=== PATIENT | male | born 1980 | race Caucasian/White ===

== ENCOUNTER 2016-04-09 17:07 | Inpatient (IN) | payer OTHER ==
[~2016-04-09] VITALS: Ht 185.4 cm; Wt 83.2 kg
[~2016-04-09 17:07] MED LIST: BENZTROPINE MESY1 MG PO; DIVALPROEX SOD500 MG PO; HALDOL DECON50 MG/ML IM; HALDOL10 MG PO; INVEGA SUS234 MG/1.5 IM; LAMOTRIGINE50 MG PO; RANITIDINE HCL150 MG PO; TYLENOL EXTRA500 MG PO; ZOLPIDEM TARTRA10 MG PO
[2016-04-09 18:11] LABS: GLUCOSE 118 mg/dL (70-99)
[2016-04-09 18:14] LABS: ALKALINE PHOSPHATASE 52 IU/L (3-129); GFR ESTIMATE (CALCULATED) > 59 mL/min/
[2016-04-09 18:15] LABS: UREA NITROGEN (BUN) 8 mg/dL (9-23)
[2016-04-09 18:28] LABS: ANION GAP ND MEQ/L (2-14); CHLORIDE ND mEq/L (99-109); POTASSIUM ND mEq/L (3.7-5.4); SODIUM ND mEq/L (136-147)
[2016-04-09 19:12] LABS: MCH 30.4 PG (29.0-34.0); MEAN PLAT.VOLUME 10.3 uM^3 (9.0-12.4); PLATELET COUNT 196 K/uL (156-360); RBC DIS.WIDTH-CV 12.4 % (11.8-14.6); RBC DIS.WIDTH-SD 33.3 % (39-53); RED BLOOD COUNT 5.06 M/uL (4.00-5.50); WHITE BLOOD COUNT 12.6 K/uL (4.1-10.2)
[2016-04-09 19:13] LABS: CHLORIDE < 64 mEq/L (99-109); POTASSIUM 3.1 mEq/L (3.7-5.4)
[2016-04-09 19:13] LABS: HEMATOCRIT ND % (38.0-50.0); MCHC 32.84 G/DL (30.0-36.0); MCV 92.68 FL (86-99)
[2016-04-09 19:19] LABS: SODIUM 102 mEq/L (136-147)
[2016-04-09 20:22] LABS: CHLORIDE 64 MEQ/L (99-109)
[2016-04-09 20:23] LABS: GLUCOSE 101 mg/dL (70-99)
[2016-04-09 20:24] LABS: SODIUM 103 MEQ/L (136-147)
[2016-04-09 20:25] LABS: ANION GAP 10 MEQ/L (2-14)
[2016-04-09 20:27] LABS: GFR ESTIMATE (CALCULATED) > 59 mL/min/
[2016-04-09 20:28] LABS: UREA NITROGEN (BUN) 7 mg/dL (9-23)
[2016-04-09 20:47] LABS: ADD MIUA? YES; BILIRUBIN NEGATIVE; BLOOD NEGATIVE; COLOR YELLOW ((YELLOW)); GLUCOSE (STRIP) NEGATIVE; KETONES 20; LEUKOCYTES NEGATIVE; NITRITE NEGATIVE; PROTEIN (STRIP) NEGATIVE; SPECIFIC GRAVITY 1.012 (1.000-1.030)
[2016-04-09 20:50] LABS: BACTERIA RARE /HPF; CASTS NONE SEEN /LPF; CRYSTALS PRESENT; EPITHELIAL CELLS NONE SEEN /HPF; MUCUS NONE SEEN /LPF; RED BLOOD CELLS 0-5 /HPF (0-5); UCUL ADDED? NO; WHITE BLOOD CELLS 0-5 /HPF (0-5)
[2016-04-09 20:51] LABS: AMORPHOUS URATES CRYSTALS FEW
[2016-04-09] MEDS ORDERED: INVEGA SUS234 MG/1.5 IM (21:32)
[2016-04-09] MEDS ORDERED: HALDOL DECON50 MG/ML IM (21:33)
[2016-04-09] MEDS ORDERED: ZOLPIDEM TARTRAT5 MG PO (21:33)
[2016-04-09] MEDS ORDERED: TYLENOL EXTRA500 MG PO (21:33)
[2016-04-09] MEDS ORDERED: THROAT SPRAY177 M1 MM (21:34)
[2016-04-09] MEDS ORDERED: GLYCERIN (21:35)
[2016-04-09 22:25] VITALS: BP 134/72
[2016-04-09 22:30] VITALS: BP 149/73
[2016-04-09 22:45] VITALS: BP 119/71
[2016-04-09 23:00] VITALS: BP 105/67
[2016-04-09 23:30] VITALS: BP 131/73
[2016-04-09 23:45] LABS: METH RESISTANT S AUREUS PCR NEGATIVE (NEGATIVE)
[2016-04-09 23:47] LABS: PROBE CHECK PASS; SPECIMEN PROCESSING CONTROL PASS
[2016-04-10] VITALS (24 sets, daily range): BP systolic 92–138; BP diastolic 40–77
[2016-04-10 00:08] LABS: CHLORIDE 66 mEq/L (99-109); POTASSIUM 2.7 mEq/L (3.7-5.4)
[2016-04-10 00:10] LABS: GLUCOSE 98 mg/dL (70-99)
[2016-04-10 00:12] LABS: ANION GAP 11 MEQ/L (2-14); TOTAL BILIRUBIN 1.2 mg/dL (0.0-1.0)
[2016-04-10 00:14] LABS: ALKALINE PHOSPHATASE 55 IU/L (3-129); GFR ESTIMATE (CALCULATED) > 59 mL/min/
[2016-04-10 00:15] LABS: UREA NITROGEN (BUN) 6 mg/dL (9-23)
[2016-04-10 00:16] LABS: DIRECT BILIRUBIN 0.5 mg/dL (0.0-0.3)
[2016-04-10 00:27] LABS: SODIUM 106 mEq/L (136-147)
[2016-04-10 05:14] LABS: GLUCOSE 98 mg/dL (70-99)
[2016-04-10 05:16] LABS: ANION GAP 9 MEQ/L (2-14)
[2016-04-10 05:18] LABS: GFR ESTIMATE (CALCULATED) > 59 mL/min/
[2016-04-10 05:19] LABS: UREA NITROGEN (BUN) 6 mg/dL (9-23)
[2016-04-10 05:20] LABS: CHLORIDE 73 mEq/L (99-109); POTASSIUM 3.3 mEq/L (3.7-5.4); SODIUM 109 mEq/L (136-147)
[2016-04-10 09:53] LABS: ANION GAP 7 MEQ/L (2-14); GFR ESTIMATE (CALCULATED) > 59 mL/min/; GLUCOSE 99 mg/dL (70-99); POTASSIUM 2.9 MEQ/L (3.7-5.4); SAMPLE HEMOLYSIS CHECK 0; SAMPLE ICTERIC CHECK 0; SAMPLE LIPEMIA CHECK 0; UREA NITROGEN (BUN) 5 mg/dL (9-23)
[2016-04-10 09:55] LABS: CHLORIDE 76 MEQ/L (99-109); SODIUM 113 MEQ/L (136-147)
[2016-04-10 13:12] LABS: ANION GAP 7 MEQ/L (2-14); CHLORIDE 77 MEQ/L (99-109); GFR ESTIMATE (CALCULATED) > 59 mL/min/; GLUCOSE 89 mg/dL (70-99); POTASSIUM 3.1 MEQ/L (3.7-5.4); SAMPLE HEMOLYSIS CHECK 0; SAMPLE ICTERIC CHECK 0; SAMPLE LIPEMIA CHECK 0; UREA NITROGEN (BUN) 6 mg/dL (9-23)
[2016-04-10 13:14] LABS: SODIUM 114 MEQ/L (136-147)
[2016-04-10 14:52] LABS: ANION GAP 10 MEQ/L (2-14); CHLORIDE 78 MEQ/L (99-109); GFR ESTIMATE (CALCULATED) > 59 mL/min/; GLUCOSE 99 mg/dL (70-99); POTASSIUM 3.6 MEQ/L (3.7-5.4); SAMPLE HEMOLYSIS CHECK 0; SAMPLE ICTERIC CHECK 0; SAMPLE LIPEMIA CHECK 0; UREA NITROGEN (BUN) 5 mg/dL (9-23)
[2016-04-10 14:54] LABS: SODIUM 120 MEQ/L (136-147)
[2016-04-10 19:31] LABS: ANION GAP 11 MEQ/L (2-14); CHLORIDE 81 MEQ/L (99-109); SAMPLE HEMOLYSIS CHECK 0; SAMPLE ICTERIC CHECK 0; SAMPLE LIPEMIA CHECK 0; SODIUM 121 MEQ/L (136-147)
[2016-04-10 19:37] LABS: GFR ESTIMATE (CALCULATED) > 59 mL/min/; GLUCOSE 99 mg/dL (70-99); UREA NITROGEN (BUN) 7 mg/dL (9-23)
[2016-04-10 22:39] LABS: ANION GAP 10 MEQ/L (2-14); CHLORIDE 82 MEQ/L (99-109); GFR ESTIMATE (CALCULATED) > 59 mL/min/; GLUCOSE 89 mg/dL (70-99); SAMPLE HEMOLYSIS CHECK 0; SAMPLE ICTERIC CHECK 0; SAMPLE LIPEMIA CHECK 0; SODIUM 120 MEQ/L (136-147); UREA NITROGEN (BUN) 7 mg/dL (9-23)
[2016-04-11] VITALS (24 sets, daily range): BP systolic 90–135; BP diastolic 50–90
[2016-04-11 00:45] LABS: POTASSIUM 3.2 mEq/L (3.7-5.4); SODIUM 121 mEq/L (136-147)
[2016-04-11 00:46] LABS: CHLORIDE 85 mEq/L (99-109); GLUCOSE 109 mg/dL (70-99)
[2016-04-11 00:48] LABS: ANION GAP 8 MEQ/L (2-14)
[2016-04-11 00:50] LABS: GFR ESTIMATE (CALCULATED) > 59 mL/min/
[2016-04-11 00:51] LABS: UREA NITROGEN (BUN) 7 mg/dL (9-23)
[2016-04-11 02:35] LABS: CHLORIDE 85 mEq/L (99-109); POTASSIUM 3.2 mEq/L (3.7-5.4); SODIUM 121 mEq/L (136-147)
[2016-04-11 02:36] LABS: GLUCOSE 120 mg/dL (70-99)
[2016-04-11 02:38] LABS: ANION GAP 8 MEQ/L (2-14)
[2016-04-11 02:40] LABS: GFR ESTIMATE (CALCULATED) > 59 mL/min/
[2016-04-11 02:41] LABS: UREA NITROGEN (BUN) 7 mg/dL (9-23)
[2016-04-11 04:57] LABS: CHLORIDE 85 mEq/L (99-109); POTASSIUM 3.1 mEq/L (3.7-5.4); SODIUM 121 mEq/L (136-147)
[2016-04-11 04:59] LABS: GLUCOSE 93 mg/dL (70-99)
[2016-04-11 05:00] LABS: ANION GAP 9 MEQ/L (2-14)
[2016-04-11 05:02] LABS: GFR ESTIMATE (CALCULATED) > 59 mL/min/
[2016-04-11 05:03] LABS: UREA NITROGEN (BUN) 7 mg/dL (9-23)
[2016-04-11 06:51] LABS: EOSINOPHIL (%) 0.8 % (0-5); EOSINOPHIL COUNT 0.1 K/uL (0-0.3); HEMATOCRIT 38.8 % (38.0-50.0); IMMATURE GRANULOCYTE (%) 0.2 % (0.0-0.7); LYMPHOCYTE COUNT 1.6 K/uL (1.0-2.8); MCH 30.4 PG (29.0-34.0); MCHC 32.7 G/DL (30.0-36.0); MCV 92.8 FL (86-99); MONOCYTE (%) 10.3 % (3-12); MONOCYTE COUNT 0.6 K/uL (0-0.8); NEUTROPHIL (%) 62.3 % (45-76); NEUTROPHIL COUNT 3.9 K/uL (1.8-6.4); PLATELET COUNT 193 K/uL (156-360); RBC DIS.WIDTH-CV 12.6 % (11.8-14.6); RBC DIS.WIDTH-SD 36.2 % (39-53)
[2016-04-11 06:56] LABS: WHITE BLOOD COUNT 6.2 K/uL (4.1-10.2)
[2016-04-11 07:44] LABS: ANION GAP 8 MEQ/L (2-14); CHLORIDE 82 MEQ/L (99-109); GFR ESTIMATE (CALCULATED) > 59 mL/min/; GLUCOSE 110 mg/dL (70-99); POTASSIUM 3.1 MEQ/L (3.7-5.4); SAMPLE HEMOLYSIS CHECK 0; SAMPLE ICTERIC CHECK 0; SAMPLE LIPEMIA CHECK 0; UREA NITROGEN (BUN) 7 mg/dL (9-23)
[2016-04-11 07:45] LABS: SODIUM 118 MEQ/L (136-147)
[2016-04-11 09:01] LABS: ANION GAP 6 MEQ/L (2-14); CHLORIDE 82 MEQ/L (99-109); GFR ESTIMATE (CALCULATED) > 59 mL/min/; GLUCOSE 126 mg/dL (70-99); POTASSIUM 3.1 MEQ/L (3.7-5.4); SAMPLE HEMOLYSIS CHECK 0; SAMPLE ICTERIC CHECK 0; SAMPLE LIPEMIA CHECK 0; SODIUM 117 MEQ/L (136-147); UREA NITROGEN (BUN) 7 mg/dL (9-23)
[2016-04-11 11:12] LABS: ANION GAP 8 MEQ/L (2-14); CHLORIDE 82 MEQ/L (99-109); GFR ESTIMATE (CALCULATED) > 59 mL/min/; POTASSIUM 3.6 MEQ/L (3.7-5.4); SAMPLE HEMOLYSIS CHECK 2; SAMPLE ICTERIC CHECK 0; SAMPLE LIPEMIA CHECK 0; UREA NITROGEN (BUN) 7 mg/dL (9-23)
[2016-04-11 11:22] LABS: GLUCOSE 77 mg/dL (70-99); SODIUM 117 MEQ/L (136-147)
[2016-04-11 13:04] LABS: ANION GAP 9 MEQ/L (2-14); CHLORIDE 82 MEQ/L (99-109); GFR ESTIMATE (CALCULATED) > 59 mL/min/; POTASSIUM 3.2 MEQ/L (3.7-5.4); SAMPLE HEMOLYSIS CHECK 0; SAMPLE ICTERIC CHECK 0; SAMPLE LIPEMIA CHECK 0; UREA NITROGEN (BUN) 6 mg/dL (9-23)
[2016-04-11 13:15] LABS: GLUCOSE 102 mg/dL (70-99); SODIUM 118 MEQ/L (136-147)
[2016-04-11 14:27] LABS: ANION GAP 6 MEQ/L (2-14); CHLORIDE 83 MEQ/L (99-109); GFR ESTIMATE (CALCULATED) > 59 mL/min/; GLUCOSE 117 mg/dL (70-99); POTASSIUM 2.9 MEQ/L (3.7-5.4); SAMPLE HEMOLYSIS CHECK 0; SAMPLE ICTERIC CHECK 0; SAMPLE LIPEMIA CHECK 0; UREA NITROGEN (BUN) 6 mg/dL (9-23)
[2016-04-11 14:28] LABS: SODIUM 117 MEQ/L (136-147)
[2016-04-11 16:48] LABS: ANION GAP 9 MEQ/L (2-14); CHLORIDE 83 MEQ/L (99-109); GFR ESTIMATE (CALCULATED) > 59 mL/min/; GLUCOSE 106 mg/dL (70-99); POTASSIUM 3.2 MEQ/L (3.7-5.4); SAMPLE HEMOLYSIS CHECK 0; SAMPLE ICTERIC CHECK 0; SAMPLE LIPEMIA CHECK 0; SODIUM 121 MEQ/L (136-147); UREA NITROGEN (BUN) 6 mg/dL (9-23)
[2016-04-11 18:03] LABS: ANION GAP 10 MEQ/L (2-14); CHLORIDE 86 MEQ/L (99-109); GFR ESTIMATE (CALCULATED) > 59 mL/min/; GLUCOSE 107 mg/dL (70-99); SAMPLE HEMOLYSIS CHECK 0; SAMPLE ICTERIC CHECK 0; SAMPLE LIPEMIA CHECK 0; SODIUM 121 MEQ/L (136-147); UREA NITROGEN (BUN) 5 mg/dL (9-23)
[2016-04-11 20:13] LABS: ANION GAP 9 MEQ/L (2-14); CHLORIDE 89 MEQ/L (99-109); GFR ESTIMATE (CALCULATED) > 59 mL/min/; GLUCOSE 97 mg/dL (70-99); SAMPLE HEMOLYSIS CHECK 0; SAMPLE ICTERIC CHECK 0; SAMPLE LIPEMIA CHECK 0; SODIUM 126 MEQ/L (136-147); UREA NITROGEN (BUN) 6 mg/dL (9-23)
[2016-04-11 22:19] LABS: ANION GAP 6 MEQ/L (2-14); CHLORIDE 92 MEQ/L (99-109); GFR ESTIMATE (CALCULATED) > 59 mL/min/; POTASSIUM 2.9 MEQ/L (3.7-5.4); SAMPLE HEMOLYSIS CHECK 0; SAMPLE ICTERIC CHECK 0; SAMPLE LIPEMIA CHECK 0; SODIUM 126 MEQ/L (136-147); UREA NITROGEN (BUN) 6 mg/dL (9-23)
[2016-04-11 22:28] LABS: GLUCOSE 242 mg/dL (70-99)
[2016-04-12] VITALS (14 sets, daily range): BP systolic 98–142; BP diastolic 34–88
[2016-04-12 01:27] LABS: SODIUM 132 mEq/L (136-147)
[2016-04-12 01:30] LABS: ANION GAP 7 MEQ/L (2-14)
[2016-04-12 01:32] LABS: GFR ESTIMATE (CALCULATED) > 59 mL/min/
[2016-04-12 01:33] LABS: UREA NITROGEN (BUN) 5 mg/dL (9-23)
[2016-04-12 01:39] LABS: CHLORIDE 97 mEq/L (99-109); GLUCOSE 116 mg/dL (70-99); POTASSIUM 3.7 mEq/L (3.7-5.4)
[2016-04-12 03:27] LABS: CHLORIDE 97 mEq/L (99-109); POTASSIUM 3.6 mEq/L (3.7-5.4); SODIUM 132 mEq/L (136-147)
[2016-04-12 03:29] LABS: GLUCOSE 104 mg/dL (70-99)
[2016-04-12 03:31] LABS: ANION GAP 7 MEQ/L (2-14)
[2016-04-12 03:33] LABS: GFR ESTIMATE (CALCULATED) > 59 mL/min/
[2016-04-12 03:34] LABS: UREA NITROGEN (BUN) 5 mg/dL (9-23)
[2016-04-12 07:05] LABS: ANION GAP 9 MEQ/L (2-14); CHLORIDE 98 MEQ/L (99-109); GFR ESTIMATE (CALCULATED) > 59 mL/min/; GLUCOSE 137 mg/dL (70-99); MAGNESIUM 2.2 mg/dl (1.3-2.7); SAMPLE HEMOLYSIS CHECK 0; SAMPLE ICTERIC CHECK 0; SAMPLE LIPEMIA CHECK 0; SODIUM 131 MEQ/L (136-147); UREA NITROGEN (BUN) 5 mg/dL (9-23)
[2016-04-12 09:55] LABS: ANION GAP 9 MEQ/L (2-14); CHLORIDE 96 MEQ/L (99-109); GFR ESTIMATE (CALCULATED) > 59 mL/min/; GLUCOSE 150 mg/dL (70-99); SAMPLE HEMOLYSIS CHECK 0; SAMPLE ICTERIC CHECK 0; SAMPLE LIPEMIA CHECK 0; SODIUM 131 MEQ/L (136-147); UREA NITROGEN (BUN) 4 mg/dL (9-23)
[2016-04-12 13:05] LABS: CHLORIDE 102 mEq/L (99-109); POTASSIUM 4.4 mEq/L (3.7-5.4); SODIUM 131 mEq/L (136-147)
[2016-04-12 13:08] LABS: ANION GAP 9 MEQ/L (2-14)
[2016-04-12 13:10] LABS: GFR ESTIMATE (CALCULATED) > 59 mL/min/
[2016-04-12 13:11] LABS: GLUCOSE 108 mg/dL (70-99); UREA NITROGEN (BUN) 4 mg/dL (9-23)
[2016-04-12 19:28] LABS: ANION GAP 9 MEQ/L (2-14); CHLORIDE 99 MEQ/L (99-109); GFR ESTIMATE (CALCULATED) > 59 mL/min/; POTASSIUM 3.8 MEQ/L (3.7-5.4); SAMPLE HEMOLYSIS CHECK 0; SAMPLE ICTERIC CHECK 0; SAMPLE LIPEMIA CHECK 0; SODIUM 135 MEQ/L (136-147); UREA NITROGEN (BUN) 7 mg/dL (9-23)
[2016-04-12 19:29] LABS: GLUCOSE 51 mg/dL (70-99)
[2016-04-12 19:51] LABS: POINT-OF-CARE METER ID UU13113748
[2016-04-12 21:53] LABS: ANION GAP 10 MEQ/L (2-14); CHLORIDE 98 MEQ/L (99-109); GFR ESTIMATE (CALCULATED) > 59 mL/min/; GLUCOSE 75 mg/dL (70-99); POTASSIUM 4.1 MEQ/L (3.7-5.4); SAMPLE HEMOLYSIS CHECK 0; SAMPLE ICTERIC CHECK 0; SAMPLE LIPEMIA CHECK 0; SODIUM 134 MEQ/L (136-147); UREA NITROGEN (BUN) 10 mg/dL (9-23)
[2016-04-13 08:44] LABS: ANION GAP 8 MEQ/L (2-14); CHLORIDE 96 MEQ/L (99-109); GFR ESTIMATE (CALCULATED) > 59 mL/min/; POTASSIUM 4.3 MEQ/L (3.7-5.4); SAMPLE HEMOLYSIS CHECK 0; SAMPLE ICTERIC CHECK 0; SAMPLE LIPEMIA CHECK 0; SODIUM 132 MEQ/L (136-147); UREA NITROGEN (BUN) 10 mg/dL (9-23)
[2016-04-13 08:52] LABS: GLUCOSE 100 mg/dL (70-99)
[2016-04-13 09:01] VITALS: BP 136/74
[2016-04-13 17:09] LABS: ANION GAP 6 MEQ/L (2-14); CHLORIDE 100 MEQ/L (99-109); GFR ESTIMATE (CALCULATED) > 59 mL/min/; POTASSIUM 3.9 MEQ/L (3.7-5.4); SAMPLE HEMOLYSIS CHECK 0; SAMPLE ICTERIC CHECK 0; SAMPLE LIPEMIA CHECK 0; SODIUM 134 MEQ/L (136-147); UREA NITROGEN (BUN) 11 mg/dL (9-23)
[2016-04-13 17:11] LABS: GLUCOSE 41 mg/dL (70-99)
[2016-04-13 17:50] VITALS: BP 145/84
[2016-04-14 00:45] VITALS: BP 117/65
[2016-04-14 08:01] LABS: ANION GAP 7 MEQ/L (2-14); CHLORIDE 99 MEQ/L (99-109); GFR ESTIMATE (CALCULATED) > 59 mL/min/; SAMPLE HEMOLYSIS CHECK 0; SAMPLE ICTERIC CHECK 0; SAMPLE LIPEMIA CHECK 0; SODIUM 136 MEQ/L (136-147); UREA NITROGEN (BUN) 11 mg/dL (9-23)
[2016-04-14 08:11] LABS: GLUCOSE 93 mg/dL (70-99)
[2016-04-14 08:38] VITALS: BP 125/78
== END 2016-04-14 11:32 | disposition home or self-care (01) | DRG 641 ==
LOC: EME 17:07 → 4WEST 21:37 → EDOF 21:37 → 4WEST 22:18 → 5EAST 04-12 19:57
PROVIDERS: Emergency Medicine; Internal Medicine; Internal Medicine Nephrology; Internal Medicine Pulmonary Disease; Physician Assistant Medical; Specialist; Surgery
DX: E87.1 Hypo-osmolality and hyponatremia (principal); F33.2 Major depressive disorder, recurrent severe without psychotic features; F20.9 Schizophrenia, unspecified; E87.6 Hypokalemia; E86.0 Dehydration; K21.9 Gastro-esophageal reflux disease without esophagitis; F41.9 Anxiety disorder, unspecified; F17.210 Nicotine dependence, cigarettes, uncomplicated; E87.8 Other disorders of electrolyte and fluid balance, not elsewhere classified; R63.1 Polydipsia
CPT/HCPCS: 71010; 80048; 80048 91; 80051; 80053; 80076; 81003; 82436; 82533 91; 82948; 83735; 83930; 83935; 84100; 84133; 84300; 84443; 84550; 85014; 85018; 85025; 85027; 87641; 93005; 99281; 99285; J1644; J2060; J2405; J2597; J3480; J7030; J7060; J7070

== ENCOUNTER 2016-04-15 17:25 | Emergency (ER) | payer OTHER ==
[~2016-04-15] VITALS: Ht 182.9 cm; Wt 81.8 kg
[~2016-04-15 17:25] MED LIST changes: +GLYCERIN; +THROAT SPRAY177 M1 MM; +ZOLPIDEM TARTRAT5 MG PO
[2016-04-15 18:18] LABS: CHLORIDE 107 mEq/L (99-109); POTASSIUM 4.3 mEq/L (3.7-5.4); SODIUM 139 mEq/L (136-147)
[2016-04-15 18:19] LABS: GLUCOSE 87 mg/dL (70-99); HEMATOCRIT 38.1 % (38.0-50.0); MCH 29.3 PG (29.0-34.0); MCHC 35.4 G/DL (30.0-36.0); MEAN PLAT.VOLUME 8.9 uM^3 (9.0-12.4); RBC DIS.WIDTH-CV 13.6 % (11.8-14.6); RBC DIS.WIDTH-SD 40.4 % (39-53)
[2016-04-15 18:20] LABS: MCV 82.8 FL (86-99); PLATELET COUNT 263 K/uL (156-360); WHITE BLOOD COUNT 8.5 K/uL (4.1-10.2)
[2016-04-15 18:21] LABS: ANION GAP 7 MEQ/L (2-14)
[2016-04-15 18:23] LABS: GFR ESTIMATE (CALCULATED) > 59 mL/min/
[2016-04-15 18:24] LABS: UREA NITROGEN (BUN) 8 mg/dL (9-23)
[2016-04-15 19:22] LABS: SERUM ETHYL ALCOHOL < 10 mg/dL
[2016-04-15 20:46] LABS: ADD MIUA? YES; BILIRUBIN NEGATIVE; BLOOD NEGATIVE; COLOR YELLOW ((YELLOW)); GLUCOSE (STRIP) NEGATIVE; KETONES 5; LEUKOCYTES NEGATIVE; NITRITE NEGATIVE; PROTEIN (STRIP) NEGATIVE; SPECIFIC GRAVITY 1.018 (1.000-1.030)
[2016-04-15 21:04] LABS: BACTERIA NONE SEEN /HPF; EPITHELIAL CELLS NONE SEEN /HPF; MUCUS TRACE /LPF; RED BLOOD CELLS 0-5 /HPF (0-5); UCUL ADDED? NO; UNCLASSIFIED CRYSTALS 1+ /HPF; WHITE BLOOD CELLS 0-5 /HPF (0-5)
[2016-04-15 21:05] LABS: CRYSTALS NONE SEEN
[2016-04-15 21:06] LABS: CASTS PRESENT /LPF; HYALINE CASTS RARE /LPF
[2016-04-15 21:22] LABS: AMPHETAMINE NEGATIVE (500 ng/mL); BARBITURATES NEGATIVE (200 ng/mL); BENZODIAZEPINES NEGATIVE (150 ng/mL); COCAINE NEGATIVE (150 ng/mL); INTERNAL CONTROLS VALID? YES; METHADONE NEGATIVE (200 ng/mL); METHAMPHETAMINE NEGATIVE (500 ng/mL); OPIATES (MORPHINE) NEGATIVE (100 ng/mL); OXYCODONE NEGATIVE (100 ng/mL); PHENCYCLIDINE NEGATIVE (25 ng/mL); PROPOXYPHENE NEGATIVE (300 ng/mL); THC CANNABINOIDS NEGATIVE (50 ng/mL); TRICYCLIC ANTIDEPRESSANTS NEGATIVE (300 ng/mL)
[2016-04-15 21:53] LABS: CREATINE KINASE 114 IU/L (1-294)
[2016-04-16] MEDS ORDERED: BENZTROPINE MESY1 MG PO (00:31)
[2016-04-16 02:34] VITALS: BP 98/63
== END 2016-04-16 02:36 | disposition home or self-care (01) ==
LOC: EME 17:25 → EDOF 22:16
PROVIDERS: Emergency Medicine
DX: R41.82 Altered mental status, unspecified (principal); F20.9 Schizophrenia, unspecified; K21.9 Gastro-esophageal reflux disease without esophagitis; R56.9 Unspecified convulsions; F17.200 Nicotine dependence, unspecified, uncomplicated
CPT/HCPCS: 70450; 70553; 80048; 81003; 82140; 82550; 85027; 90839; 99281; 99285; G0480

== ENCOUNTER 2016-04-16 09:25 | Inpatient (IN) | payer OTHER ==
[~2016-04-16] VITALS: Ht 182.9 cm; Wt 83.4 kg
[2016-04-16 10:16] LABS: BASOPHIL COUNT 0.1 K/uL (0-0.1); EOSINOPHIL (%) 1.1 % (0-5); EOSINOPHIL COUNT 0.1 K/uL (0-0.3); HEMATOCRIT 37.6 % (38.0-50.0); IMMATURE GRANULOCYTE (%) 0.2 % (0.0-0.7); IMMATURE GRANULOCYTE COUNT 0.2 K/uL; LYMPHOCYTE COUNT 2.4 K/uL (1.0-2.8); MCH 29.4 PG (29.0-34.0); MCHC 35.4 G/DL (30.0-36.0); MEAN PLAT.VOLUME 8.9 uM^3 (9.0-12.4); MONOCYTE (%) 4.5 % (3-12); MONOCYTE COUNT 0.4 K/uL (0-0.8); NEUTROPHIL (%) 63.5 % (45-76); NEUTROPHIL COUNT 5.1 K/uL (1.8-6.4); PLATELET COUNT 269 K/uL (156-360); RBC DIS.WIDTH-CV 13.4 % (11.8-14.6); RBC DIS.WIDTH-SD 39.9 % (39-53); RED BLOOD COUNT 4.53 M/uL (4.00-5.50)
[2016-04-16 10:25] LABS: CHLORIDE 105 mEq/L (99-109); POTASSIUM 4.4 mEq/L (3.7-5.4); SODIUM 138 mEq/L (136-147)
[2016-04-16 10:27] LABS: GLUCOSE 103 mg/dL (70-99)
[2016-04-16 10:28] LABS: ANION GAP 10 MEQ/L (2-14)
[2016-04-16 10:31] LABS: GFR ESTIMATE (CALCULATED) > 59 mL/min/
[2016-04-16 10:32] LABS: UREA NITROGEN (BUN) 7 mg/dL (9-23)
[2016-04-16 11:35] LABS: AMPHETAMINE NEGATIVE (500 ng/mL); BARBITURATES NEGATIVE (200 ng/mL); BENZODIAZEPINES NEGATIVE (150 ng/mL); COCAINE NEGATIVE (150 ng/mL); INTERNAL CONTROLS VALID? YES; METHADONE NEGATIVE (200 ng/mL); METHAMPHETAMINE NEGATIVE (500 ng/mL); OPIATES (MORPHINE) NEGATIVE (100 ng/mL); OXYCODONE NEGATIVE (100 ng/mL); PHENCYCLIDINE NEGATIVE (25 ng/mL); PROPOXYPHENE NEGATIVE (300 ng/mL); THC CANNABINOIDS NEGATIVE (50 ng/mL); TRICYCLIC ANTIDEPRESSANTS NEGATIVE (300 ng/mL)
[2016-04-16 16:00] VITALS: BP 145/89
[2016-04-17 07:40] VITALS: BP 112/64
[2016-04-17 13:14] LABS: ALKALINE PHOSPHATASE 40 IU/L (3-129); ANION GAP 11 MEQ/L (2-14); CHLORIDE 102 MEQ/L (99-109); CREATINE KINASE 98 IU/L (1-294); GFR ESTIMATE (CALCULATED) > 59 mL/min/; GLUCOSE 87 mg/dL (70-99); POTASSIUM 4.4 MEQ/L (3.7-5.4); SAMPLE HEMOLYSIS CHECK 0; SAMPLE ICTERIC CHECK 0; SAMPLE LIPEMIA CHECK 0; SODIUM 141 MEQ/L (136-147); TOTAL BILIRUBIN 0.4 MG/DL (0.0-1.0); UREA NITROGEN (BUN) 12 mg/dL (9-23)
[2016-04-17 15:57] VITALS: BP 119/74
[2016-04-18 07:56] VITALS: BP 117/76
[2016-04-18 15:28] VITALS: BP 122/78
[2016-04-18 18:02] VITALS: BP 105/59
[2016-04-19 03:13] VITALS: BP 109/67
== END 2016-04-19 04:00 | DRG 885 ==
LOC: EME 09:25 → EDOF 13:46 → 1WEST 13:46 → EDOF 14:14 → 1WEST 15:52
PROVIDERS: Emergency Medicine; Psychiatry & Neurology Psychiatry
DX: F20.9 Schizophrenia, unspecified (principal); G37.2 Central pontine myelinolysis; R41.0 Disorientation, unspecified; R26.81 Unsteadiness on feet; R51 Headache; R47.1 Dysarthria and anarthria
CPT/HCPCS: 80048 91; 80053; 82550; 85025; 90837; 99281; 99285; Q0177

== ENCOUNTER 2016-04-19 03:36 | Inpatient (IN) | payer OTHER ==
[2016-04-19] VITALS (7 sets, daily range): BP systolic 105–136; BP diastolic 68–91
[~2016-04-19] VITALS: Ht 182.9 cm; Wt 78.6 kg
[2016-04-19 04:57] LABS: HEMATOCRIT 40.8 % (38.0-50.0); MCH 29.5 PG (29.0-34.0); MCHC 35.5 G/DL (30.0-36.0); MCV 83.1 FL (86-99); MEAN PLAT.VOLUME 8.5 uM^3 (9.0-12.4); PLATELET COUNT 292 K/uL (156-360); RBC DIS.WIDTH-CV 13.5 % (11.8-14.6); RBC DIS.WIDTH-SD 39.8 % (39-53); RED BLOOD COUNT 4.91 M/uL (4.00-5.50); WHITE BLOOD COUNT 8.3 K/uL (4.1-10.2)
[2016-04-19 05:06] LABS: CHLORIDE 105 mEq/L (99-109); POTASSIUM 4.5 mEq/L (3.7-5.4); SODIUM 139 mEq/L (136-147)
[2016-04-19 05:08] LABS: GLUCOSE 99 mg/dL (70-99)
[2016-04-19 05:09] LABS: ANION GAP 8 MEQ/L (2-14)
[2016-04-19 05:10] LABS: TOTAL BILIRUBIN 0.7 mg/dL (0.0-1.0)
[2016-04-19 05:11] LABS: ALKALINE PHOSPHATASE 47 IU/L (3-129)
[2016-04-19 05:12] LABS: GFR ESTIMATE (CALCULATED) > 59 mL/min/
[2016-04-19 05:13] LABS: UREA NITROGEN (BUN) 16 mg/dL (9-23)
[2016-04-19 05:47] LABS: METH RESISTANT S AUREUS PCR NEGATIVE (NEGATIVE)
[2016-04-19 05:51] LABS: PROBE CHECK PASS; SPECIMEN PROCESSING CONTROL PASS
[2016-04-19 21:10] LABS: INFLUENZA A VIRAL ANTIGEN NEGATIVE; INFLUENZA B VIRAL ANTIGEN NEGATIVE
[2016-04-20 04:00] VITALS: BP 122/80
[2016-04-20 07:45] VITALS: BP 108/75
[2016-04-20 11:00] VITALS: BP 115/73
[2016-04-20 16:44] VITALS: BP 122/75
[2016-04-20 19:33] LABS: ADD MIUA? YES; BILIRUBIN NEGATIVE; BLOOD NEGATIVE; GLUCOSE (STRIP) NEGATIVE; KETONES 20; LEUKOCYTES NEGATIVE; NITRITE NEGATIVE; PROTEIN (STRIP) NEGATIVE; SPECIFIC GRAVITY 1.027 (1.000-1.030)
[2016-04-20 19:37] VITALS: BP 112/76
[2016-04-20 19:47] LABS: COLOR DK YELLOW ((YELLOW))
[2016-04-20 19:48] LABS: BACTERIA NONE SEEN /HPF; EPITHELIAL CELLS RARE /HPF; MUCUS 4+ /LPF; RED BLOOD CELLS 0-5 /HPF (0-5); UCUL ADDED? NO; WHITE BLOOD CELLS 0-5 /HPF (0-5)
[2016-04-20 23:40] VITALS: BP 124/80
[2016-04-21 04:00] VITALS: BP 124/85
[2016-04-21 08:38] VITALS: BP 123/77
[2016-04-21 16:53] VITALS: BP 110/68
[2016-04-21 23:01] VITALS: BP 126/73
[2016-04-22 08:44] VITALS: BP 109/80
[2016-04-22] MEDS ORDERED: VALIUM5 MG PO (10:29)
[2016-04-22 16:00] VITALS: BP 137/85
[2016-04-22 23:31] VITALS: BP 132/79
[2016-04-23 06:21] LABS: EOSINOPHIL (%) 0.4 % (0-5); HEMATOCRIT 45.7 % (38.0-50.0); IMMATURE GRANULOCYTE (%) 0.2 % (0.0-0.7); LYMPHOCYTE COUNT 2.3 K/uL (1.0-2.8); MCH 28.8 PG (29.0-34.0); MCHC 34.1 G/DL (30.0-36.0); MCV 84.3 FL (86-99); MEAN PLAT.VOLUME 9.3 uM^3 (9.0-12.4); MONOCYTE (%) 4.1 % (3-12); MONOCYTE COUNT 0.4 K/uL (0-0.8); NEUTROPHIL (%) 71.4 % (45-76); NEUTROPHIL COUNT 7.1 K/uL (1.8-6.4); PLATELET COUNT 264 K/uL (156-360); RBC DIS.WIDTH-CV 13.3 % (11.8-14.6); RBC DIS.WIDTH-SD 40.4 % (39-53); RED BLOOD COUNT 5.42 M/uL (4.00-5.50); WHITE BLOOD COUNT 9.9 K/uL (4.1-10.2)
[2016-04-23 07:10] LABS: ALKALINE PHOSPHATASE 50 IU/L (3-129); ANION GAP 15 MEQ/L (2-14); CHLORIDE 103 MEQ/L (99-109); GFR ESTIMATE (CALCULATED) > 59 mL/min/; GLUCOSE 92 mg/dL (70-99); POTASSIUM 4.2 MEQ/L (3.7-5.4); SAMPLE HEMOLYSIS CHECK 0; SAMPLE ICTERIC CHECK 0; SAMPLE LIPEMIA CHECK 0; SODIUM 141 MEQ/L (136-147)
[2016-04-23 07:11] LABS: TOTAL BILIRUBIN 0.6 MG/DL (0.0-1.0); UREA NITROGEN (BUN) 26 mg/dL (9-23)
[2016-04-23 08:52] VITALS: BP 142/81
== END 2016-04-23 20:09 | DRG 71 ==
LOC: 4WEST → 4EAST 03:44 → 5EAST 03:44 → 4EAST 19:51 → 5EAST 04-20 18:59
PROVIDERS: Hospitalist; Internal Medicine
DX: G93.41 Metabolic encephalopathy (principal); F20.2 Catatonic schizophrenia; R13.10 Dysphagia, unspecified; G24.9 Dystonia, unspecified; Z91.19 Patient's noncompliance with other medical treatment and regimen
CPT/HCPCS: 70450; 70551; 70553; 71010; 71020; 72125; 80053; 81003; 82140; 82948; 85025; 85027; 87502; 87641; 92526 GN; 92610 GN; 94640; 94760; 94799; 95819; 97530 GO; 99202; J1200; J1650; J2060; J3360

== ENCOUNTER 2016-04-23 12:57 | Inpatient (IN) | payer OTHER ==
[~2016-04-23] VITALS: Ht 188 cm; Wt 78.6 kg
[~2016-04-23 12:57] MED LIST changes: +VALIUM5 MG PO
[2016-04-23 20:26] VITALS: BP 148/80
[2016-04-23 21:08] VITALS: BP 148/80
[2016-04-24 08:59] LABS: EOSINOPHIL (%) 0.6 % (0-5); EOSINOPHIL COUNT 0.1 K/uL (0-0.3); HEMATOCRIT 45.8 % (38.0-50.0); IMMATURE GRANULOCYTE (%) 0.1 % (0.0-0.7); LYMPHOCYTE COUNT 2.2 K/uL (1.0-2.8); MCH 28.9 PG (29.0-34.0); MCHC 34.3 G/DL (30.0-36.0); MCV 84.2 FL (86-99); MEAN PLAT.VOLUME 9.2 uM^3 (9.0-12.4); MONOCYTE COUNT 0.6 K/uL (0-0.8); NEUTROPHIL (%) 67.1 % (45-76); NEUTROPHIL COUNT 5.9 K/uL (1.8-6.4); PLATELET COUNT 229 K/uL (156-360); RBC DIS.WIDTH-CV 13.4 % (11.8-14.6); RBC DIS.WIDTH-SD 41.3 % (39-53); RED BLOOD COUNT 5.44 M/uL (4.00-5.50); WHITE BLOOD COUNT 8.8 K/uL (4.1-10.2)
[2016-04-24 09:23] VITALS: BP 127/76
[2016-04-24 09:31] LABS: ALKALINE PHOSPHATASE 45 IU/L (3-129); ANION GAP 11 MEQ/L (2-14); CHLORIDE 108 MEQ/L (99-109); GFR ESTIMATE (CALCULATED) > 59 mL/min/; GLUCOSE 110 mg/dL (70-99); POTASSIUM 4.5 MEQ/L (3.7-5.4); SAMPLE HEMOLYSIS CHECK 0; SAMPLE ICTERIC CHECK 0; SAMPLE LIPEMIA CHECK 0; SODIUM 146 MEQ/L (136-147); TOTAL BILIRUBIN 0.6 MG/DL (0.0-1.0); UREA NITROGEN (BUN) 31 mg/dL (9-23)
== END 2016-04-24 14:14 | DRG 885 ==
LOC: 1WEST 12:57
PROVIDERS: Internal Medicine
DX: F20.9 Schizophrenia, unspecified (principal); R13.0 Aphagia
CPT/HCPCS: 80053; 85025; J0515; J7030

== ENCOUNTER 2016-04-24 11:20 | Inpatient (IN) | payer OTHER ==
[~2016-04-24] VITALS: Ht 180.3 cm; Wt 74.4 kg
[2016-04-24 15:30] VITALS: BP 123/80
[2016-04-24 15:50] VITALS: BP 131/83
[2016-04-25] VITALS: BP 131/76
[2016-04-25 06:40] LABS: HEMATOCRIT 42.4 % (38.0-50.0); MCHC 35.1 G/DL (30.0-36.0); MCV 85.5 FL (86-99); PLATELET COUNT 216 K/uL (156-360); RBC DIS.WIDTH-CV 13.3 % (11.8-14.6); RBC DIS.WIDTH-SD 41.3 % (39-53); RED BLOOD COUNT 4.96 M/uL (4.00-5.50)
[2016-04-25 07:09] LABS: ANION GAP 11 MEQ/L (2-14); CHLORIDE 112 MEQ/L (99-109); GFR ESTIMATE (CALCULATED) > 59 mL/min/; GLUCOSE 126 mg/dL (70-99); POTASSIUM 4.1 MEQ/L (3.7-5.4); SAMPLE HEMOLYSIS CHECK 0; SAMPLE ICTERIC CHECK 0; SAMPLE LIPEMIA CHECK 0; SODIUM 147 MEQ/L (136-147); UREA NITROGEN (BUN) 26 mg/dL (9-23)
[2016-04-25 09:12] VITALS: BP 110/76
[2016-04-25 14:21] LABS: HIV INDEX 0.06; HIV-1/2 AB/AG COMBO Nonreactive; LYME DISEASE SEROLOGY SCREEN NEGATIVE (NEGATIVE)
[2016-04-25 16:18] LABS: APPEARANCE CLEAR/COLORLESS
[2016-04-25 16:23] LABS: CSF EOSINOPHILS ND % (0-25); MONO RAW COUNT ND; MONONUCLEAR WBC'S ND % (50-90); POLY RAW COUNT ND; POLYNUCLEAR WBC'S ND % (0-3); RED CELL AREA COUNTED 18; RED CELL COUNT 0 /MM^3 (0-1); RED CELL DILUTION 1; WBC AREA COUNTED 18; WBC DILUTION 1; WHITE CELL COUNT 0 /MM^3 (0-5); WHITE CELL RAW COUNT 0
[2016-04-25 17:30] LABS: CSF LDH < 25.0 IU/L
[2016-04-26 00:07] VITALS: BP 130/81
[2016-04-26 07:47] VITALS: BP 131/74
[2016-04-26 09:35] LABS: HEMATOCRIT 39.4 % (38.0-50.0); MCH 27.9 PG (29.0-34.0); MCHC 32.7 G/DL (30.0-36.0); MCV 85.1 FL (86-99); MEAN PLAT.VOLUME 10.1 uM^3 (9.0-12.4); PLATELET COUNT 186 K/uL (156-360); RBC DIS.WIDTH-CV 13.5 % (11.8-14.6); RBC DIS.WIDTH-SD 41.4 % (39-53); RED BLOOD COUNT 4.63 M/uL (4.00-5.50)
[2016-04-26 09:38] LABS: WHITE BLOOD COUNT 5.3 K/uL (4.1-10.2)
[2016-04-26 10:03] LABS: ANION GAP 9 MEQ/L (2-14); CHLORIDE 116 MEQ/L (99-109); GFR ESTIMATE (CALCULATED) > 59 mL/min/; GLUCOSE 143 mg/dL (70-99); POTASSIUM 3.8 MEQ/L (3.7-5.4); SAMPLE HEMOLYSIS CHECK 0; SAMPLE ICTERIC CHECK 0; SAMPLE LIPEMIA CHECK 0; SODIUM 149 MEQ/L (136-147); UREA NITROGEN (BUN) 19 mg/dL (9-23)
[2016-04-26 13:54] VITALS: BP 112/70
[2016-04-26 16:52] VITALS: BP 135/74
[2016-04-26 23:05] VITALS: BP 122/81
[2016-04-27 01:49] LABS: COLOR YELLOW ((YELLOW)); LEUKOCYTES NEGATIVE; NITRITE NEGATIVE; PROTEIN (STRIP) NEGATIVE
[2016-04-27 01:50] LABS: ADD MIUA? YES; BILIRUBIN NEGATIVE; BLOOD NEGATIVE; GLUCOSE (STRIP) NEGATIVE; KETONES NEGATIVE
[2016-04-27 01:57] LABS: BACTERIA NONE SEEN /HPF; EPITHELIAL CELLS NONE SEEN /HPF; MUCUS 1+ /LPF; RED BLOOD CELLS 0-5 /HPF (0-5); UCUL ADDED? NO; WHITE BLOOD CELLS 0-5 /HPF (0-5)
[2016-04-27 08:09] VITALS: BP 126/66
[2016-04-27] MEDS ORDERED: FAMOTIDINE20 MG GT (08:42)
[2016-04-27] MEDS ORDERED: ONDANSETRON ODT4 MG GT (08:42)
[2016-04-27 09:37] LABS: ANION GAP 6 MEQ/L (2-14); CHLORIDE 113 MEQ/L (99-109); GFR ESTIMATE (CALCULATED) > 59 mL/min/; GLUCOSE 121 mg/dL (70-99); SAMPLE HEMOLYSIS CHECK 0; SAMPLE ICTERIC CHECK 0; SAMPLE LIPEMIA CHECK 0; SODIUM 145 MEQ/L (136-147); UREA NITROGEN (BUN) 16 mg/dL (9-23)
== END 2016-04-27 11:08 | disposition designated cancer center or children's hospital, planned readmission (85) | DRG 640 ==
LOC: 5EAST 11:20
PROVIDERS: Internal Medicine; Student in an Organized Health Care Education/Training Program
PROC: 009U3ZX Drainage of Spinal Canal, Percutaneous Approach, Diagnostic (ICD-10-PCS; principal; 2016-04-25)
DX: E86.0 Dehydration (principal); G93.41 Metabolic encephalopathy; F20.0 Paranoid schizophrenia; R13.12 Dysphagia, oropharyngeal phase; G24.9 Dystonia, unspecified; R47.1 Dysarthria and anarthria; F41.9 Anxiety disorder, unspecified; E87.0 Hyperosmolality and hypernatremia
CPT/HCPCS: 62270; 71010; 77003; 80048; 81003; 83615 91; 84157; 85027; 86592 90; 86617 90; 86618; 86618 90; 86703; 87070; 87205; 87252 90; 89051; J0696; J1650; J2270; J7042; J7050